=== PATIENT | female | born 1955 | race Caucasian/White ===

== ENCOUNTER 2023-08-21 01:15 | Day surgery (SDC) | payer MEDICARE, SELFPAY ==
[2023-08-08 13:25] VITALS: BMI 25.0
--- NOTE | 2023-08-20 15:15 | PM.HPGS ---
History of Present Illness History of Present Illness Consent: Risks, benefits, and alternatives have been discussed and questions answered. Patient agrees to proceed with procedure. Chief complaint: neoplasm screening Narrative: Hilary Barrientos is a 68 year old female Referred for colon cancer screening. Her last colonoscopy was about 13 years ago per Review of Systems Review of Systems: All systems reviewed & are unremarkable except as noted in HPI and below PMFSH Social History Social History Smoking status: Never smoker Alcohol intake: current Drinks per week: 1 Alcohol use details: wine Substance use type: does not use Living arrangements: with family Spiritual care concerns: No Meds Home Medications and Allergies Home Medications Medication Instructions Recorded Confirmed Type Congaplex 1 tablet PO DAILY 08/08/23 08/21/23 History Lactobacillus 1 cap PO DAILY 08/08/23 08/21/23 History acidophilus-Bifidobac.animalis 2.5 billion cell capsule (Daily Probiotic) Ligaplex 1 tablet PO DAILY 08/08/23 08/21/23 History Neuromag 1 tablet PO DAILY 08/08/23 08/21/23 History Prolimine Iodine 1 tablet PO DAILY 08/08/23 08/21/23 History Super K 1 tablet PO DAILY 08/08/23 08/21/23 History ascorbic acid (vitamin C) 500 mg 500 mg PO DAILY 08/08/23 08/21/23 History tablet cholecalciferol (vitamin D3) 25 25 mcg PO DAILY 08/08/23 08/21/23 History mcg (1,000 unit) tablet (Vitamin D3) chromium 100 mcg tablet 100 mcg PO DAILY 08/08/23 08/21/23 History coQ10 (ubiquinol) 200 mg capsule 200 mg PO DAILY 08/08/23 08/21/23 History grape seed extract 100 mg capsule 100 mg PO DAILY 08/08/23 08/21/23 History levothyroxine 25 mcg tablet 25 mcg PO DAILY 08/08/23 08/21/23 History (Synthroid) magnesium citrate 100 mg tablet 100 mg PO DAILY 08/08/23 08/21/23 History melatonin 10 mg tablet 10 mg PO HS PRN Insomnia 08/08/23 08/21/23 History methylsulfonylmethane 1,000 mg 1,000 mg PO DAILY 08/08/23 08/21/23 History capsule (MSM) mometasone 0.1 % topical cream 1 applic topical DAILY PRN other 08/08/23 08/21/23 History multivitamin with minerals 1 tablet PO DAILY 08/08/23 08/21/23 History omega-3 fatty acids 1,000 mg PO DAILY 08/08/23 08/21/23 History soybean oil-chlorophyllin 453 1 cap PO DAILY 08/08/23 08/21/23 History mg-60 mg capsule vitamin B complex 1 cap PO DAILY 08/08/23 08/21/23 History vitamin K2 100 mcg capsule 100 mcg PO DAILY 08/08/23 08/21/23 History Allergies Allergy/AdvReac Type Severity Reaction Status Date / Time No Known Allergies Allergy Unknown Verified 08/21/23 09:09 Exam Const: General: alert Orientation/consciousness: patient oriented x3 Resp: Auscultation: clear to auscultation bilaterally Cardio: Rhythm: regular rhythm GI: GI Palp: Yes Soft to palpation and No Tenderness to palpation present (GI) Neuro: General: patient oriented x3 Assessment and Plan Assessment and plan (1) Colon cancer screening: Code(s): Z12.11 - Encounter for screening for malignant neoplasm of colon Status: Acute Assessment and Plan: Colonoscopy with possible biopsy or polypectomy or cautery or injection of substances.
[2023-08-21 09:11] VITALS: BP 137/76; PULSE 98; RESP 17; TEMP 36.2; O2SAT 99; BMI 24.2
[2023-08-21] MEDS: LACTATED RINGERS 1,000 ML 150 ML IV CONT (09:33)
--- NOTE | 2023-08-21 10:08 | WPDANESEPPF ---
Anes - Initial Pre Proc Eval Procedure: Operation Date: 08/21/23 10:30 Proposed Procedures p Screening Colonoscopy - Phani Mcguire MD Date/Time: 08/21/23 10:08 Surgeon: Phani Mcguire MD Pre Op Diagnosis: neoplasm screening Patient Data Age: 68 Gender: F Height: 1.63 m Weight: 64 kg Last Vital Signs Temp 97.2 F L 08/21/23 09:11 Pulse 98 08/21/23 09:11 Resp 17 08/21/23 09:11 BP 137/76 08/21/23 09:11 Pulse Ox 99 08/21/23 09:11 O2 Del Method Room Air 08/21/23 09:11 Allergies Allergy/AdvReac Type Severity Reaction Status Date / Time No Known Allergies Allergy Unknown Verified 08/21/23 09:09 Home Medications Medication Instructions Recorded Confirmed Type Congaplex 1 tablet PO DAILY 08/08/23 08/21/23 History Lactobacillus 1 cap PO DAILY 08/08/23 08/21/23 History acidophilus-Bifidobac.animalis 2.5 billion cell capsule (Daily Probiotic) Ligaplex 1 tablet PO DAILY 08/08/23 08/21/23 History Neuromag 1 tablet PO DAILY 08/08/23 08/21/23 History Prolimine Iodine 1 tablet PO DAILY 08/08/23 08/21/23 History Super K 1 tablet PO DAILY 08/08/23 08/21/23 History ascorbic acid (vitamin C) 500 mg 500 mg PO DAILY 08/08/23 08/21/23 History tablet cholecalciferol (vitamin D3) 25 25 mcg PO DAILY 08/08/23 08/21/23 History mcg (1,000 unit) tablet (Vitamin D3) chromium 100 mcg tablet 100 mcg PO DAILY 08/08/23 08/21/23 History coQ10 (ubiquinol) 200 mg capsule 200 mg PO DAILY 08/08/23 08/21/23 History grape seed extract 100 mg capsule 100 mg PO DAILY 08/08/23 08/21/23 History levothyroxine 25 mcg tablet 25 mcg PO DAILY 08/08/23 08/21/23 History (Synthroid) magnesium citrate 100 mg tablet 100 mg PO DAILY 08/08/23 08/21/23 History melatonin 10 mg tablet 10 mg PO HS PRN Insomnia 08/08/23 08/21/23 History methylsulfonylmethane 1,000 mg 1,000 mg PO DAILY 08/08/23 08/21/23 History capsule (MSM) mometasone 0.1 % topical cream 1 applic topical DAILY PRN other 08/08/23 08/21/23 History multivitamin with minerals 1 tablet PO DAILY 08/08/23 08/21/23 History omega-3 fatty acids 1,000 mg PO DAILY 08/08/23 08/21/23 History soybean oil-chlorophyllin 453 1 cap PO DAILY 08/08/23 08/21/23 History mg-60 mg capsule vitamin B complex 1 cap PO DAILY 08/08/23 08/21/23 History vitamin K2 100 mcg capsule 100 mcg PO DAILY 08/08/23 08/21/23 History Patient hx anesthesia problems: none Family hx anesthesia problems: none Results Review: All pre-operative results and documents have been reviewed as part of the pre-operative evaluation. [facility] Social History Social History Smoking status: Never smoker Alcohol intake: current Drinks per week: 1 Alcohol use details: wine Substance use type: does not use Living arrangements: with family Spiritual care concerns: No Anes - Eval Final PreProcedure Day of Procedure 08/21/23 10:08 Patient weight: normal Heart: regular rate and rhythm Lungs: clear to auscultation Airway: Mallampati scale class II Neurological: alert and oriented Last oral intake: >/= 8 hours ASA classification: II Emergent: no Anesthetic plan: proceed Anesthesia type and monitoring: general GIVS and standard monitoring Results Review: All pre-operative results and documents have been reviewed as part of the pre-operative evaluation. Informed Consent: The patient's anesthetic plan and its attendant risks and benefits were discussed with the patient/family/POA. Questions were solicited and answers provided to the satisfaction of the patient/family/POA.
[2023-08-21 10:48] VITALS: BP 88/53; PULSE 82; RESP 20; O2SAT 99
[2023-08-21 10:58] VITALS: BP 100/59; PULSE 80; RESP 18; O2SAT 100
[2023-08-21 11:08] VITALS: BP 103/65; PULSE 75; RESP 18; O2SAT 100
== END 2023-08-21 11:18 | disposition home or self-care (01) ==
PROVIDERS: PCP Nurse Practitioner Family; Visit Provider Internal Medicine Gastroenterology
PROC: 0DJD8ZZ Inspection of Lower Intestinal Tract, Via Natural or Artificial Opening Endoscopic (ICD-10-PCS; CPT 45378; principal; 2023-08-21 10:30)
DX: Z12.11 Encounter for screening for malignant neoplasm of colon (principal)
CPT/HCPCS: G0121; J2704; J7120